=== PATIENT | male | born 2000 | race Caucasian/White ===

== ENCOUNTER 2022-09-10 20:32 | Emergency (ER) | payer OTHER ==
[~2022-09-10] VITALS: Ht 175.3 cm; Wt 76.8 kg
[2022-09-10 20:33] VITALS: BP 128/70; TEMP 98.6; O2SAT 98
== END 2022-09-10 23:48 | disposition home or self-care (01) ==
LOC: M ED 20:32
DX: S63.591A Other specified sprain of right wrist, initial encounter (principal); M24.131 Other articular cartilage disorders, right wrist; F17.200 Nicotine dependence, unspecified, uncomplicated; F10.10 Alcohol abuse, uncomplicated

== ENCOUNTER → 2022-12-20 | Outpatient (CLI) | payer OTHER ==
[~2022-12-20] MED LIST: ISOVUE-300 61% 100ML VIAL As Ordered ONE; LIDOCAINE 1% MDV 20ML VIAL As Ordered ONE; PROHANCE 279.3MG/ML 5ML VIAL As Ordered ONE
== END ==
LOC: M RAD 06:30
PROVIDERS: ATTEND Orthopaedic Surgery Hand Surgery
DX: M25.531 Pain in right wrist (principal); S63.501A Unspecified sprain of right wrist, initial encounter; X58.XXXA Exposure to other specified factors, initial encounter; Y92.9 Unspecified place or not applicable
CPT/HCPCS: 25246; 73115; 73223; A9576; Q9967

== ENCOUNTER → 2023-01-19 | Outpatient (CLI) | payer OTHER | LOC: M RAD 08:53 | PROVIDERS: ATTEND Physician Assistant Medical | DX: J32.0 Chronic maxillary sinusitis (principal) ==

== ENCOUNTER → 2023-02-21 | Outpatient (CLI) | payer OTHER | LOC: M SOG 11:16 | PROVIDERS: ATTEND Orthopaedic Surgery Hand Surgery | DX: M25.532 Pain in left wrist (principal); M25.531 Pain in right wrist ==

== ENCOUNTER 2023-03-08 08:05 | Day surgery (SDC) | payer OTHER ==
[~2023-03-08] VITALS: Ht 175.3 cm; Wt 85.7 kg
[~2023-03-08 08:05] MED LIST changes: +FLUTISP NARES; -ISOVUE-300 61% 100ML VIAL As Ordered ONE; -LIDOCAINE 1% MDV 20ML VIAL As Ordered ONE; -PROHANCE 279.3MG/ML 5ML VIAL As Ordered ONE; +ceFAZolin SOD 2 GM in IV 1 EA IV ONE
[2023-03-08] MEDS ORDERED: LIDOCAINE 2% 100MG/5ML SDV (FOR ANES.) As Ordered ONE (08:27)
[2023-03-08] MEDS ORDERED: propofoL 200 MG/20 ML VIAL As Ordered ONE (08:27)
[2023-03-08] MEDS ORDERED: MIDAZOLAM INJ 2MG/2ML VIAL As Ordered ONE (08:27)
[2023-03-08] MEDS ORDERED: ONDANSETRON 4MG 2ML VIAL As Ordered ONE (08:27)
[2023-03-08] MEDS ORDERED: ACETAMINOPHEN 1000MG 100ML IV BAG As Ordered ONE (08:27)
[2023-03-08] MEDS ORDERED: fentaNYL 100 MCG/2 ML INJECTION As Ordered ONE (08:28)
[2023-03-08] MEDS ORDERED: LR 1,000 ML IV SCH (08:30)
[2023-03-08] MEDS ORDERED: MIDAZOLAM INJ 2MG/2ML VIAL IV PRN (09:15)
[2023-03-08] MEDS: fentaNYL 100 MCG/2 ML INJECTION IV PRN (09:26)
[2023-03-08] MEDS ORDERED: EPINEPHrine INJ 1 MG/ML 1ML AMP PN ONE (09:30)
[2023-03-08] MEDS ORDERED: ROPIvacaine 0.5% 30ML VIAL PN ONE (09:30)
[2023-03-08] MEDS ORDERED: LIDOCAINE 1% SDV 5ML VIAL PN ONE (09:30)
[2023-03-08] MEDS ORDERED: GLYCOPYRROLATE INJ 0.2 MG/ML 2 ML VIAL As Ordered ONE (09:52)
[2023-03-08] MEDS ORDERED: dexmedeTOMIDine (4MCG/ML)200MCG/50ML BTL (PRECEDEX) As Ordered ONE (10:38)
[2023-03-08] MEDS ORDERED: BACITRACIN OINTMENT 30GM TUBE As Ordered ONE (13:50)
[2023-03-08] MEDS ORDERED: PERCOCET PO ×2 (14:09→16:00)
[2023-03-08] MEDS ORDERED: ONDANSETRON 4MG 2ML VIAL IV PRN (14:10)
[2023-03-08] MEDS ORDERED: fentaNYL 100 MCG/2 ML INJECTION IV PRN (14:10)
[2023-03-08] MEDS ORDERED: METOCLOPRAMIDE INJ 10MG/2ML VIAL IV PRN (14:10)
[2023-03-08] MEDS ORDERED: oxyCODONE 5MG TAB PO PRN (14:10)
[2023-03-08 15:34] VITALS: BP 124/60; TEMP 98.1; O2SAT 98
== END 2023-03-08 15:45 | disposition home or self-care (01) ==
LOC: M SDC 08:05
PROVIDERS: ATTEND Orthopaedic Surgery Hand Surgery
DX: M25.531 Pain in right wrist (principal); S63.591A Other specified sprain of right wrist, initial encounter; F17.200 Nicotine dependence, unspecified, uncomplicated; G43.909 Migraine, unspecified, not intractable, without status migrainosus; F41.9 Anxiety disorder, unspecified; Z79.899 Other long term (current) drug therapy
CPT/HCPCS: 25390; 29846; C1713; J0131; J0171; J1100; J2250; J2405; J2795; J3010

== ENCOUNTER → 2023-03-16 | Outpatient (CLI) | payer OTHER ==
[~2023-03-16] MED LIST changes: +PERCOCET PO; -ceFAZolin SOD 2 GM in IV 1 EA IV ONE
== END ==
LOC: M SOG 07:51
PROVIDERS: ATTEND Physician Assistant
DX: S63.591A Other specified sprain of right wrist, initial encounter (principal)

== ENCOUNTER → 2023-04-13 | Outpatient (CLI) | payer OTHER | LOC: M SOG 08:05 | PROVIDERS: ATTEND Physician Assistant | DX: M21.831 Other specified acquired deformities of right forearm (principal); S63.591D Other specified sprain of right wrist, subsequent encounter ==

== ENCOUNTER 2023-04-24 08:57 | Day surgery (SDC) | payer OTHER ==
[~2023-04-24] VITALS: Ht 175.3 cm; Wt 88.6 kg
[2023-04-24] MEDS ORDERED: OXYMETAZOLINE 0.05% NASAL SPRAY (AFRIN) As Ordered ONE (11:12)
[2023-04-24] MEDS ORDERED: METHYLENE BLUE 0.5% (5MG/ML) 10 ML AMP (PROVAYBLUE) As Ordered ONE (11:12)
[2023-04-24] MEDS ORDERED: propofoL 200 MG/20 ML VIAL As Ordered ONE (11:44)
[2023-04-24] MEDS ORDERED: MIDAZOLAM INJ 2MG/2ML VIAL As Ordered ONE (11:44)
[2023-04-24] MEDS ORDERED: dexmedeTOMIDine (4MCG/ML)200MCG/50ML BTL (PRECEDEX) As Ordered ONE (11:44)
[2023-04-24] MEDS ORDERED: fentaNYL 250 MCG/5 ML INJECTION As Ordered ONE (11:44)
[2023-04-24] MEDS ORDERED: SUGAMMADEX SODIUM 500 MG/5 ML VIAL (BRIDION) As Ordered ONE (11:44)
[2023-04-24] MEDS ORDERED: ONDANSETRON 4MG 2ML VIAL As Ordered ONE (11:44)
[2023-04-24] MEDS ORDERED: LIDOCAINE 2% 100MG/5ML SDV (FOR ANES.) As Ordered ONE (11:44)
[2023-04-24] MEDS ORDERED: ROCURONIUM BROMIDE 50MG/5ML VIAL As Ordered ONE (11:44)
[2023-04-24] MEDS ORDERED: ACETAMINOPHEN 1000MG 100ML IV BAG As Ordered ONE (11:44)
[2023-04-24] MEDS ORDERED: ESMOLOL INJ 100MG/10ML VIAL As Ordered ONE (11:51)
[2023-04-24] MEDS: EPINEPHrine 1MG/ML INJ 30ML MD-VIAL As Ordered ONE (12:41)
[2023-04-24] MEDS: LIDOCAINE W/EPINEPHRINE 1% 20ML VIAL As Ordered ONE (12:41)
[2023-04-24] MEDS ORDERED: fentaNYL 100 MCG/2 ML INJECTION IV PRN (14:00)
[2023-04-24] MEDS ORDERED: LR 1,000 ML IV SCH (14:00)
[2023-04-24] MEDS ORDERED: ONDANSETRON 4MG 2ML VIAL IV PRN (14:00)
[2023-04-24] MEDS: HYDROMORPHONE HCL 0.5 MG/ 0.5 ML SYRINGE IV PRN (14:20)
[2023-04-24] MEDS: oxyCODONE 5MG TAB PO PRN (14:20)
[2023-04-24 17:00] VITALS: BP 127/65; TEMP 97.9; O2SAT 97
== END 2023-04-24 17:17 | disposition home or self-care (01) ==
LOC: M SDC 08:57
PROVIDERS: ATTEND Otolaryngology
DX: J32.0 Chronic maxillary sinusitis (principal); J32.2 Chronic ethmoidal sinusitis; J34.2 Deviated nasal septum; F17.200 Nicotine dependence, unspecified, uncomplicated; G43.909 Migraine, unspecified, not intractable, without status migrainosus; F41.9 Anxiety disorder, unspecified; Z79.899 Other long term (current) drug therapy
CPT/HCPCS: 30520; 31255; 31267; 88300; C2625; J0131; J0171; J1100; J1170; J1805; J2250; J2405; J3010; Q9968

== ENCOUNTER → 2023-05-08 | Outpatient (CLI) | payer OTHER | LOC: M SOG 10:49 | PROVIDERS: ATTEND Physician Assistant | DX: Z47.89 Encounter for other orthopedic aftercare (principal); S63.591D Other specified sprain of right wrist, subsequent encounter ==

== ENCOUNTER → 2023-06-05 | Outpatient (CLI) | payer OTHER | LOC: M SOG 08:24 | PROVIDERS: ATTEND Physician Assistant | DX: S63.591D Other specified sprain of right wrist, subsequent encounter (principal); M25.631 Stiffness of right wrist, not elsewhere classified ==

== ENCOUNTER → 2023-08-03 | Outpatient (CLI) | payer OTHER | LOC: M SOG 07:58 | PROVIDERS: ATTEND Physician Assistant | DX: S63.591D Other specified sprain of right wrist, subsequent encounter (principal) ==

== ENCOUNTER 2023-11-22 09:03 | Emergency (ER) | payer OTHER ==
[~2023-11-22] VITALS: Ht 175.3 cm; Wt 87.2 kg
[2023-11-22] MEDS ORDERED: PENI500T PO (10:59)
[2023-11-22 11:09] VITALS: BP 131/64; TEMP 98.4; O2SAT 100
== END 2023-11-22 11:12 | disposition home or self-care (01) ==
LOC: M ED 09:03
DX: J02.0 Streptococcal pharyngitis (principal); F17.200 Nicotine dependence, unspecified, uncomplicated; Z79.2 Long term (current) use of antibiotics; Z79.899 Other long term (current) drug therapy

== ENCOUNTER 2024-01-08 13:46 | Emergency (ER) | payer OTHER ==
[~2024-01-08] VITALS: Ht 175.3 cm; Wt 88.6 kg
[~2024-01-08 13:46] MED LIST changes: +PENI500T PO
[2024-01-08 15:20] VITALS: TEMP 97.9
[2024-01-08] MEDS ORDERED: BENZ200C70 PO (15:34)
[2024-01-08 15:38] VITALS: BP 131/75; O2SAT 99
[2024-01-08] MEDS ORDERED: VENTAER INH (15:38)
== END 2024-01-08 15:42 | disposition home or self-care (01) ==
LOC: M ED 13:46
DX: U07.1 COVID-19 (principal); Z79.52 Long term (current) use of systemic steroids; Z79.899 Other long term (current) drug therapy

== ENCOUNTER 2024-12-30 06:53 | Emergency (ER) | payer OTHER ==
[~2024-12-30] VITALS: Ht 175.3 cm; Wt 97.7 kg
[~2024-12-30 06:53] MED LIST changes: +BENZ200C70 PO; +DAYT1LIQ PO; +FLON1SPR NARES; +VENTAER INH
[2024-12-30] MEDS: ALBUTEROL SULFATE 2.5 MG/0.5 ML INH CONCENTRATE NEB SOLN NEB PRN (08:20)
[2024-12-30] MEDS: BENZONATATE 100 MG CAPSULE PO ONE (08:25)
[2024-12-30 09:08] VITALS: BP 113/56; TEMP 97.7; O2SAT 96
[2024-12-30] MEDS ORDERED: ALBU8.5H INH (09:10)
[2024-12-30] MEDS ORDERED: BREAMIS10 MC (09:10)
[2024-12-30] MEDS ORDERED: PRED20TA PO (09:10)
[2024-12-30] MEDS ORDERED: BENZ200C70 PO (09:10)
== END 2024-12-30 09:18 | disposition home or self-care (01) ==
LOC: M ED 06:53
DX: R06.02 Shortness of breath (principal); B97.4 Respiratory syncytial virus as the cause of diseases classified elsewhere; J45.909 Unspecified asthma, uncomplicated; Z90.49 Acquired absence of other specified parts of digestive tract; Z79.52 Long term (current) use of systemic steroids; Z79.899 Other long term (current) drug therapy